=== PATIENT | male | born 1940 | race Two or more races ===

== ENCOUNTER 2016-10-29 10:58 | Observation (INO) | payer SELFPAY ==
[~2016-10-29] VITALS: Ht 172.7 cm; Wt 75.1 kg
[~2016-10-29 10:58] MED LIST: ASPIR-LOW81 MG PO; BLOOD PRESSURE; HYDROCODON-ACE1 EAC7 PO; KEFLEX500 MG PO; ZOFRAN ODT4 MG PO
[2016-10-29] MEDS ORDERED: MICARDIS40 MG PO (12:08)
[2016-10-29 12:19] LABS: HEMATOCRIT 39.3 % (38.0-50.0); MCH 32.1 PG (29.0-34.0); MCHC 33.3 G/DL (30.0-36.0); MCV 96.3 FL (86-99); MEAN PLAT.VOLUME 10.3 uM^3 (9.0-12.4); PLATELET COUNT 237 K/uL (156-360); RBC DIS.WIDTH-CV 12.8 % (11.8-14.6); RBC DIS.WIDTH-SD 45.2 % (39-53); RED BLOOD COUNT 4.08 M/uL (4.00-5.50); WHITE BLOOD COUNT 4.3 K/uL (4.1-10.2)
[2016-10-29 12:37] LABS: CHLORIDE 108 mEq/L (99-109); SODIUM 138 mEq/L (136-147)
[2016-10-29 12:38] LABS: GLUCOSE 101 mg/dL (70-99)
[2016-10-29 12:40] LABS: ANION GAP 8 MEQ/L (2-14)
[2016-10-29 12:41] LABS: TROP-I INTERPRETATION NEGATIVE; TROPONIN-I < 0.01 ng/mL (0.0-0.30)
[2016-10-29 12:42] LABS: GFR ESTIMATE (CALCULATED) > 59 mL/min/
[2016-10-29 12:43] LABS: UREA NITROGEN (BUN) 28 mg/dL (9-23)
[2016-10-29 13:24] LABS: D-DIMER ELISA 0.48 mg/L FEU (< 0.57)
[2016-10-29] MEDS ORDERED: MICARDIS HCT1 TABLE1 PO (13:36)
[2016-10-29] MEDS ORDERED: FISH OIL 1,2001 EAC3 PO (13:37)
[2016-10-29] MEDS ORDERED: MAGNESIUM400 M1 PO (13:37)
[2016-10-29 14:05] LABS: TROP-I INTERPRETATION NEGATIVE; TROPONIN-I < 0.01 ng/mL (0.0-0.30)
[2016-10-29 15:15] VITALS: BP 153/81
[2016-10-29 20:35] VITALS: BP 106/67
[2016-10-30 00:05] VITALS: BP 109/69
[2016-10-30 01:29] LABS: TROP-I INTERPRETATION NEGATIVE; TROPONIN-I < 0.01 ng/mL (0.0-0.30)
[2016-10-30 03:27] VITALS: BP 115/76
[2016-10-30 05:26] LABS: HEMATOCRIT 33.6 % (38.0-50.0); MCH 32.3 PG (29.0-34.0); MCHC 33.3 G/DL (30.0-36.0); MCV 96.8 FL (86-99); MEAN PLAT.VOLUME 10.1 uM^3 (9.0-12.4); PLATELET COUNT 180 K/uL (156-360); RBC DIS.WIDTH-CV 13.1 % (11.8-14.6); RBC DIS.WIDTH-SD 46.5 % (39-53); RED BLOOD COUNT 3.47 M/uL (4.00-5.50); WHITE BLOOD COUNT 4.4 K/uL (4.1-10.2)
[2016-10-30 05:38] LABS: TROP-I INTERPRETATION NEGATIVE; TROPONIN-I < 0.01 ng/mL (0.0-0.30)
[2016-10-30 05:50] LABS: ANION GAP 6 MEQ/L (2-14); CHLORIDE 107 MEQ/L (99-109); GFR ESTIMATE (CALCULATED) > 59 mL/min/; GLUCOSE 83 mg/dL (70-99); POTASSIUM 4.3 MEQ/L (3.7-5.4); SAMPLE HEMOLYSIS CHECK 0; SAMPLE ICTERIC CHECK 0; SAMPLE LIPEMIA CHECK 0; SODIUM 137 MEQ/L (136-147); UREA NITROGEN (BUN) 25 mg/dL (9-23)
[2016-10-30 07:34] VITALS: BP 116/57
[2016-10-30] MEDS ORDERED: METHOCARBAMOL750 MG PO (09:47)
[2016-10-30] MEDS ORDERED: LOSARTAN POTASS50 MG PO (09:47)
== END 2016-10-30 12:22 | disposition home or self-care (01) ==
LOC: EME 10:58 → EDOF 13:22 → 5WEST 14:58
PROVIDERS: Internal Medicine; Nurse Practitioner Family
DX: R07.89 Other chest pain (principal); N17.9 Acute kidney failure, unspecified; I10 Essential (primary) hypertension; R01.1 Cardiac murmur, unspecified; Z87.891 Personal history of nicotine dependence
CPT/HCPCS: 71020; 80048; 84484; 85027; 85379; 93005; 99281; 99285; G0378; J7030

== ENCOUNTER 2016-11-19 09:52 | Day surgery (SDC) | payer OTHER ==
[~2016-11-19] VITALS: Ht 170.2 cm; Wt 82.7 kg
[~2016-11-19 09:52] MED LIST changes: +FISH OIL 1,2001 EAC3 PO; +LOSARTAN POTASS50 MG PO; +MAGNESIUM400 M1 PO; +METHOCARBAMOL750 MG PO; +MICARDIS HCT1 TABLE1 PO; +MICARDIS40 MG PO; +MICARDIS80 MG PO
[2016-11-19 22:15] VITALS: BP 138/76
[2016-11-20 03:09] VITALS: BP 125/71
[2016-11-20 07:08] LABS: EOSINOPHIL (%) 2.3 % (0-5); EOSINOPHIL COUNT 0.1 K/uL (0-0.3); HEMATOCRIT 33.7 % (38.0-50.0); IMMATURE GRANULOCYTE (%) 0.6 % (0.0-0.7); INSTRUMENT ABS NEUTROPHIL CT 2.7 K/uL; LYMPHOCYTE COUNT 1.9 K/uL (1.0-2.8); MCH 32.2 PG (29.0-34.0); MCHC 33.5 G/DL (30.0-36.0); MEAN PLAT.VOLUME 10.5 uM^3 (9.0-12.4); MONOCYTE (%) 8.8 % (3-12); MONOCYTE COUNT 0.5 K/uL (0-0.8); NEUTROPHIL (%) 50.5 % (45-76); NEUTROPHIL COUNT 2.7 K/uL (1.8-6.4); PLATELET COUNT 185 K/uL (156-360); RBC DIS.WIDTH-CV 13.2 % (11.8-14.6); RBC DIS.WIDTH-SD 46.1 % (39-53); WHITE BLOOD COUNT 5.2 K/uL (4.1-10.2)
[2016-11-20 07:30] LABS: RED BLOOD COUNT 3.51 M/uL (4.00-5.50)
[2016-11-20 07:32] LABS: ANION GAP 6 MEQ/L (2-14); CHLORIDE 109 MEQ/L (99-109); GFR ESTIMATE (CALCULATED) > 59 mL/min/; GLUCOSE 80 mg/dL (70-99); POTASSIUM 4.1 MEQ/L (3.7-5.4); SAMPLE HEMOLYSIS CHECK 0; SAMPLE ICTERIC CHECK 0; SAMPLE LIPEMIA CHECK 0; SODIUM 137 MEQ/L (136-147); UREA NITROGEN (BUN) 15 mg/dL (9-23)
[2016-11-20 08:59] VITALS: BP 126/79
[2016-11-20] MEDS ORDERED: ATORVASTATIN CA40 MG PO (11:45)
[2016-11-20] MEDS ORDERED: CLOPIDOGREL75 MG PO (11:45)
[2016-11-20 12:10] VITALS: BP 158/91
== END 2016-11-20 14:20 | disposition home or self-care (01) ==
LOC: CATH 09:52 → 2SOUTH 14:32 → 4EAST 22:09
PROVIDERS: Internal Medicine Cardiovascular Disease
PROC: 4A033BC Measurement of Arterial Pressure, Coronary, Percutaneous Approach (ICD-10-PCS; principal; 2016-11-19)
PROC: 4A023N7 Measurement of Cardiac Sampling and Pressure, Left Heart, Percutaneous Approach (ICD-10-PCS; principal; 2016-11-19)
PROC: B2111ZZ Fluoroscopy of Multiple Coronary Arteries using Low Osmolar Contrast (ICD-10-PCS; principal; 2016-11-19)
PROC: B2151ZZ Fluoroscopy of Left Heart using Low Osmolar Contrast (ICD-10-PCS; principal; 2016-11-19)
PROC: B240ZZ3 Ultrasonography of Single Coronary Artery, Intravascular (ICD-10-PCS; principal; 2016-11-19)
DX: I25.119 Atherosclerotic heart disease of native coronary artery with unspecified angina pectoris (principal); I10 Essential (primary) hypertension; R00.1 Bradycardia, unspecified; Z87.891 Personal history of nicotine dependence; Z79.82 Long term (current) use of aspirin
CPT/HCPCS: 92978; 93571; 93458; C9600; 80048; 85025; 85347; 93005; C1725; C1750; C1769; C1874; C1887; C1894; G0378; J0153; J1200; J1644; J2250; J3010; J3246; J7030; J7050